=== PATIENT | male | born 1965 | race Caucasian/White ===

== ENCOUNTER 2022-07-06 11:21 | Emergency (ER) | payer OTHER ==
[~2022-07-06] VITALS: Ht 180.3 cm; Wt 115.9 kg
[2022-07-06] MEDS ORDERED: ATEN-73 PO (11:32)
[2022-07-06] MEDS ORDERED: LISI-892 PO (11:32)
[2022-07-06 12:17] LABS: COVID AG,FIA SOURCE NASOPHARYNGEAL
[2022-07-06] MEDS ORDERED: ACETAMINOPHEN 500 MG TABLET PO ONE (12:45)
[2022-07-06 13:17] VITALS: BP 126/83
[2022-07-06 13:24] LABS: INFLUENZA TYPE A NEGATIVE FOR TYPE A (NEGATIVE); INFLUENZA TYPE B NEGATIVE FOR TYPE B (NEGATIVE)
== END 2022-07-06 14:00 | disposition home or self-care (01) ==
LOC: EMS 11:23
DX: U07.1 COVID-19 (principal); I10 Essential (primary) hypertension; F17.210 Nicotine dependence, cigarettes, uncomplicated; Z98.890 Other specified postprocedural states
CPT/HCPCS: 71045; 87804; 99284